=== PATIENT | male | born 1965 | race African-American/Black ===

== ENCOUNTER 2019-11-03 21:05 | Emergency (ER) | payer OTHER ==
[2019-11-03] MEDS ORDERED: predniSONE 20 MG TAB ONE (21:36)
[2019-11-03] MEDS ORDERED: hydrOXYzine 25 MG TAB ONE (21:43)
[2019-11-03] MEDS ORDERED: hydrOXYzine 25 MG TAB PO SCH (21:45)
== END 2019-11-03 21:59 ==
LOC: ERS 21:05
DX: L50.1 Idiopathic urticaria (principal)
CPT/HCPCS: 99283; J7512